=== PATIENT | male | born 1965 | race Caucasian/White ===

== ENCOUNTER 2022-06-26 22:33 | Emergency (ER) | payer SELFPAY ==
[~2022-06-26] VITALS: Ht 170.2 cm; Wt 79.0 kg
[~2022-06-26 22:33] MED LIST: BACTRIM DS1 TAB PO; EXCEDRIN EXTRA STREN PO; NAPROSYN500 MG PO
[2022-06-26 22:48] VITALS: BP 149/91
[2022-06-26 23:00] VITALS: BP 131/85
[2022-06-26] MEDS ORDERED: VIBRAMYCIN100 M2 PO (23:05)
[2022-06-26 23:16] VITALS: BP 138/90
== END 2022-06-26 23:30 | disposition home or self-care (01) | DRG 605 ==
LOC: ED 22:33
DX: S51.012A Laceration without foreign body of left elbow, initial encounter (principal); L03.114 Cellulitis of left upper limb; W45.8XXA Other foreign body or object entering through skin, initial encounter

== ENCOUNTER 2022-07-21 11:15 | Observation (INO) | payer SELFPAY ==
[~2022-07-21] VITALS: Ht 170.2 cm; Wt 79.5 kg
[~2022-07-21 11:15] MED LIST changes: +VIBRAMYCIN100 M2 PO
[2022-07-21 13:35] LABS: BASO% 0.3 % (0-3); EOS% 2.3 % (0-8); HEMATOCRIT 43.4 % (39.0-50.0); HEMOGLOBIN 14.7 g/dl (14.0-18.0); IMMATURE GRANULOCYTES 0.1 % (0.0-5.0); LYMPH% 15.6 % (15-41); MEAN CELL VOLUME 92.3 fL CALC (80.0-100.0); MEAN CORPUSCULAR HGB 31.3 pG CALC (26.0-32.0); MEAN CORPUSCULAR HGB CONC 33.9 g/dL CAL (32.0-36.0); MONO% 8.8 % (2-13); NEUT# 5.16 thou/uL (1.82-7.42); NEUT% 72.9 % (42-76); RED BLOOD COUNT 4.7 mill/uL (4.70-6.10)
[2022-07-21 13:48] LABS: ALBUMIN 4.2 g/dL (3.2-5.0); ANION GAP 13 (6-22 (CALC)); BILIRUBIN, TOTAL 0.3 mg/dL (0.0-1.4); BUN 16 mg/dL (9-20); BUN/CREATININE RATIO 16 (12-20 (CALC)); CARBON DIOXIDE 27 mmol/l (22-30); CHLORIDE 103 mmol/l (95-108); GFR FOR AFR.AMER. > 60 ML/MIN (>=60 (CALC)); GFR OTHER RACES > 60 ML/MIN (>=60 (CALC)); POTASSIUM 4.1 mmol/l (3.5-5.1); SGOT/AST 32 u/l (17-59); SODIUM 139 mmol/l (137-146); TOTAL PROTEIN 7.7 g/dL (6.3-8.2)
[2022-07-21 13:49] LABS: ALKALINE PHOSPHATASE 96 u/l (38-126)
[2022-07-21 13:52] LABS: C-REACTIVE PROTEIN 5.4 mg/dL (0-0.9)
[2022-07-21 19:09] VITALS: BP 127/77
[2022-07-22 04:36] VITALS: BP 148/85
[2022-07-22 05:51] LABS: ALKALINE PHOSPHATASE 77 u/l (38-126); ANION GAP 9 (6-22 (CALC)); BASO% 0.5 % (0-3); BILIRUBIN, TOTAL 0.2 mg/dL (0.0-1.4); BUN 11 mg/dL (9-20); BUN/CREATININE RATIO 15 (12-20 (CALC)); CARBON DIOXIDE 24 mmol/l (22-30); CHLORIDE 108 mmol/l (95-108); CREATININE 0.8 mg/dL (0.7-1.3); EOS% 5.6 % (0-8); GFR FOR AFR.AMER. > 60 ML/MIN (>=60 (CALC)); GFR OTHER RACES > 60 ML/MIN (>=60 (CALC)); HEMATOCRIT 38.9 % (39.0-50.0); HEMOGLOBIN 13.3 g/dl (14.0-18.0); IMMATURE GRANULOCYTES 0.4 % (0.0-5.0); LYMPH% 16.9 % (15-41); MEAN CELL VOLUME 92.8 fL CALC (80.0-100.0); MEAN CORPUSCULAR HGB 31.7 pG CALC (26.0-32.0); MEAN CORPUSCULAR HGB CONC 34.2 g/dL CAL (32.0-36.0); MONO% 8.9 % (2-13); NEUT# 3.73 thou/uL (1.82-7.42); NEUT% 67.7 % (42-76); POTASSIUM 4.5 mmol/l (3.5-5.1); RED BLOOD COUNT 4.19 mill/uL (4.70-6.10); RED CELL DISTRI WIDTH 13.1 % (11.5-15.5); SGOT/AST 24 u/l (17-59); SODIUM 136 mmol/l (137-146)
[2022-07-22 05:55] LABS: ALBUMIN 3.1 g/dL (3.2-5.0)
[2022-07-22 06:40] VITALS: BP 151/92
[2022-07-22 14:36] VITALS: BP 149/96
[2022-07-22 19:56] VITALS: BP 172/101
[2022-07-22 21:38] VITALS: BP 144/92
[2022-07-23 00:35] VITALS: BP 137/85
[2022-07-23 03:48] VITALS: BP 147/85
[2022-07-23 04:00] VITALS: BP 147/85
[2022-07-23 05:18] LABS: BASO% 0.5 % (0-3); EOS% 4.3 % (0-8); HEMATOCRIT 39.9 % (39.0-50.0); HEMOGLOBIN 13.6 g/dl (14.0-18.0); IMMATURE GRANULOCYTES 0.3 % (0.0-5.0); LYMPH% 21.7 % (15-41); MEAN CELL VOLUME 91.9 fL CALC (80.0-100.0); MEAN CORPUSCULAR HGB 31.3 pG CALC (26.0-32.0); MEAN CORPUSCULAR HGB CONC 34.1 g/dL CAL (32.0-36.0); MONO% 9.3 % (2-13); NEUT% 63.9 % (42-76); RED BLOOD COUNT 4.34 mill/uL (4.70-6.10); RED CELL DISTRI WIDTH 12.6 % (11.5-15.5)
[2022-07-23 05:42] LABS: ALBUMIN 3.3 g/dL (3.2-5.0); ALKALINE PHOSPHATASE 77 u/l (38-126); ANION GAP 11 (6-22 (CALC)); BUN 16 mg/dL (9-20); BUN/CREATININE RATIO 17 (12-20 (CALC)); CARBON DIOXIDE 23 mmol/l (22-30); CHLORIDE 109 mmol/l (95-108); CREATININE 0.9 mg/dL (0.7-1.3); GFR FOR AFR.AMER. > 60 ML/MIN (>=60 (CALC)); GFR OTHER RACES > 60 ML/MIN (>=60 (CALC)); POTASSIUM 4.5 mmol/l (3.5-5.1); SGOT/AST 27 u/l (17-59); SODIUM 138 mmol/l (137-146); TOTAL PROTEIN 6.3 g/dL (6.3-8.2)
[2022-07-23 06:35] VITALS: BP 151/97
[2022-07-23] MEDS ORDERED: BACTRIM DS1 TAB PO (11:28)
[2022-07-23] MEDS ORDERED: PERCOCET 5/321 COMBO PO (11:29)
== END 2022-07-23 13:10 | disposition home or self-care (01) | DRG 603 ==
LOC: ED 11:15 → ED-I 16:05 → ED 16:18 → MS2 16:19
PROVIDERS: Nurse Practitioner; Nurse Practitioner Family; ADMIT Internal Medicine; ATTEND Internal Medicine
DX: L03.114 Cellulitis of left upper limb (principal); S52.025A Nondisplaced fracture of olecranon process without intraarticular extension of left ulna, initial encounter for closed fracture; S51.012A Laceration without foreign body of left elbow, initial encounter; W27.1XXA Contact with garden tool, initial encounter; B95.61 Methicillin susceptible Staphylococcus aureus infection as the cause of diseases classified elsewhere; M25.511 Pain in right shoulder
CPT/HCPCS: G0378; J1650; Q9967

== ENCOUNTER 2024-02-11 17:58 | Emergency (ER) | payer OTHER ==
[~2024-02-11] VITALS: Ht 170.2 cm; Wt 70.3 kg
[~2024-02-11 17:58] MED LIST changes: +PERCOCET 5/321 COMBO PO
[2024-02-11] MEDS ORDERED: MORPHINE SULFATE 4 MG/ML VIAL IV ONE (18:10)
[2024-02-11] MEDS ORDERED: ONDANSETRON HCl 4 MG/2 ML SDV IV ONE (18:10)
[2024-02-11 18:11] VITALS: BP 137/75
[2024-02-11 18:44] LABS: BASO% 0.2 % (0-3); EOS% 1.7 % (0-8); IMMATURE GRANULOCYTES 0.2 % (0.0-5.0); LYMPH% 11.5 % (15-41); MEAN CELL VOLUME 91.8 fL CALC (80.0-100.0); MEAN CORPUSCULAR HGB 30.9 pG CALC (26.0-32.0); MEAN CORPUSCULAR HGB CONC 33.6 g/dL CAL (32.0-36.0); MONO% 4.2 % (2-13); NEUT# 7.37 thou/uL (1.82-7.42); NEUT% 82.2 % (42-76); RED BLOOD COUNT 5.15 mill/uL (4.70-6.10)
[2024-02-11 18:50] LABS: ALKALINE PHOSPHATASE 72 u/l (38-126); ANION GAP 13 (6-22 (CALC)); BUN 11 mg/dL (9-20); BUN/CREATININE RATIO 10 (12-20 (CALC)); CARBON DIOXIDE 23 mmol/l (22-30); CHLORIDE 106 mmol/l (95-108); CREATININE 1.1 mg/dL (0.7-1.3); ESTIMATED GFR 78 ML/MIN (>=90 (CALC)); POTASSIUM 3.8 mmol/l (3.5-5.1); SGOT/AST 38 u/l (17-59); SODIUM 138 mmol/l (137-146)
[2024-02-11 18:53] LABS: HEMATOCRIT 47.3 % (39.0-50.0); HEMOGLOBIN 15.9 g/dl (14.0-18.0)
[2024-02-11 19:02] LABS: ALBUMIN 4.6 g/dL (3.2-5.0); BILIRUBIN, TOTAL 1.1 mg/dL (0.2-1.3); TOTAL PROTEIN 7.9 g/dL (6.3-8.2)
[2024-02-11] MEDS ORDERED: Diph, Acellular Pertussis, Tet 0.5 ML/VIAL (Tdap) SDV IM ONE (19:05)
[2024-02-11 20:13] VITALS: BP 150/93
[2024-02-11 20:15] VITALS: BP 150/83
[2024-02-11 20:30] VITALS: BP 150/95
[2024-02-11] MEDS ORDERED: HYDROcodone 5 MG/Acetaminophen 325 MG/COMBO PO ONE (20:40)
[2024-02-11] MEDS ORDERED: IBUPROFEN 800 MG/TAB PO ONE (20:40)
[2024-02-11] MEDS ORDERED: LORTAB 5/3255 MG PO (20:42)
[2024-02-11] MEDS ORDERED: MOTRIN800 MG PO (20:42)
[2024-02-11 20:46] VITALS: BP 123/74
[2024-02-11 21:27] VITALS: BP 123/74
== END 2024-02-11 21:27 | disposition home or self-care (01) ==
LOC: ED 17:58
PROVIDERS: Family Medicine
DX: S32.010A Wedge compression fracture of first lumbar vertebra, initial encounter for closed fracture (principal); S00.01XA Abrasion of scalp, initial encounter; M79.662 Pain in left lower leg; W17.89XA Other fall from one level to another, initial encounter; Y93.H9 Activity, other involving exterior property and land maintenance, building and construction; Y92.007 Garden or yard of unspecified non-institutional (private) residence as the place of occurrence of the external cause
CPT/HCPCS: Q9967